=== PATIENT | female | born 1955 | race African-American/Black ===

== ENCOUNTER 2021-03-26 12:11 | Inpatient (IN) | payer OTHER ==
[~2021-03-26] VITALS: Ht 162.6 cm; Wt 58.1 kg
[2021-03-26] MEDS ORDERED: MORPHINE SULFATE 4 MG/ML CPJ (NOT FOR IM USE) IV STA (12:47)
[2021-03-26] MEDS ORDERED: ONDANSETRON HCL 4MG/2ML INJ IV STA (12:47)
[2021-03-26] MEDS ORDERED: SODIUM CHLORIDE 0.9% 1000ML BAG (SEPSIS BOLUS) IV ONE (13:00)
[2021-03-26] MEDS ORDERED: CEFTRIAXONE 1 G PREMIX 50 ML IV ONE (13:00)
[2021-03-26] MEDS ORDERED: AZITHROMYCIN 500 MG in DEXT 5% WATER 250 ML IV ONE (13:00)
[2021-03-26 14:28] LABS: BASOPHILS % 0.8 % (0.0-2.0); EOSINOPHILS % 1.4 % (0.0-5.0); HEMATOCRIT. 39.5 % (36.0-48.0); HEMOGLOBIN. 13.8 g/dL (12.0-16.0); LYMPHOCYTES % 19.6 % (20.0-50.0); MEAN CORPUSCULAR HEMOGLOBIN 29.3 pg (28.0-32.0); MEAN PLATELET VOLUME 8.9 fl (7.4-10.4); MONOCYTES % 6.8 % (2.0-8.0); NEUTROPHILS % 71.4 % (40.0-76.0); PLATELET 94 x1000/uL (130-400); RED CELL DISTRIBUTION WIDTH 14.6 % (11.6-14.6)
[2021-03-26 14:33] LABS: CHLORIDE 106 mEq/L (98-107)
[2021-03-26 14:39] LABS: D-DIMER 3.97 mg/L FEU (<0.50); PROTHROMBIN TIME 10.9 sec (9.6-11.0)
[2021-03-26] MEDS ORDERED: POTASSIUM CHLORIDE 20MEQ TABLET SR PO ONE (15:00)
[2021-03-26 15:55] LABS: CLARITY URINE CLEAR (CLEAR); COLOR URINE DARK YELLOW (YELLOW); KETONES URINE TRACE (NEGATIVE); LEUKOCYTE ESTERASE URINE 1+ (NEGATIVE); NITRITE URINE NEGATIVE (NEGATIVE); OCCULT BLOOD URINE NEGATIVE (NEGATIVE); PROTEIN URINE 1+ (NEGATIVE); SPECIFIC GRAVITY URINE 1.042 (1.005-1.030)
[2021-03-26] MEDS ORDERED: IOHEXOL-350 100 ML BOTTLE ONE (17:30)
[2021-03-26] MEDS ORDERED: CEFTRIAXONE 1 G PREMIX 50 ML IV SCH (22:00)
[2021-03-26] MEDS ORDERED: ONDANSETRON HCL 4MG/2ML INJ IV PRN (22:00)
[2021-03-26] MEDS: ALBUTEROL 6.7GM HFA INHALER ORI SCH (22:00)
[2021-03-26 22:40] VITALS: BP 137/58
[2021-03-26 23:03] LABS: CREATINE KINASE 64 IU/L (26-192)
[2021-03-26 23:08] LABS: CREATINE KINASE MB FRACTION < 1.0 ng/mL (0.5-3.6)
[2021-03-26] MEDS: METHYLPREDNISOLONE SOD SUCC 40 MG/ML VIAL IV SCH (23:31)
[2021-03-26] MEDS: ACETAMINOPHEN 325MG TABLET PO PRN (23:32)
[2021-03-26] MEDS ORDERED: *PATIENT'S OWN MEDICATION STORAGE XX SCH (23:45)
[2021-03-27] VITALS: BP 137/58
[2021-03-27] MEDS ORDERED: FLUO10CA25 PO (00:10)
[2021-03-27] MEDS ORDERED: ACET-2708 PO (00:10)
[2021-03-27] MEDS ORDERED: TETR15DR26 OP (00:10)
[2021-03-27] MEDS ORDERED: IBUP-1653 PO (00:10)
[2021-03-27] MEDS: ALBUTEROL 6.7GM HFA INHALER ORI SCH (03:29)
[2021-03-27 04:00] VITALS: BP 126/58
[2021-03-27] MEDS: METHYLPREDNISOLONE SOD SUCC 40 MG/ML VIAL IV SCH ×3 (06:06→21:20)
[2021-03-27 06:31] LABS: CHLORIDE 109 mEq/L (98-107)
[2021-03-27 06:43] LABS: CREATINE KINASE 65 IU/L (26-192)
[2021-03-27 06:45] LABS: CREATINE KINASE MB FRACTION < 1.0 ng/mL (0.5-3.6)
[2021-03-27 06:50] LABS: BASOPHILS % 0.6 % (0.0-2.0); EOSINOPHILS % 0.2 % (0.0-5.0); HEMATOCRIT. 39.4 % (36.0-48.0); HEMOGLOBIN. 13.3 g/dL (12.0-16.0); LYMPHOCYTES % 10.6 % (20.0-50.0); MEAN CORPUSCULAR HEMOGLOBIN 29.1 pg (28.0-32.0); MEAN CORPUSCULAR VOLUME 86.1 fL (81.0-99.0); MEAN PLATELET VOLUME 9.3 fl (7.4-10.4); MONOCYTES % 3.7 % (2.0-8.0); NEUTROPHILS % 84.9 % (40.0-76.0); PLATELET 75 x1000/uL (130-400); RED BLOOD CELL COUNT 4.58 mill/uL (4.2-5.4); RED CELL DISTRIBUTION WIDTH 14.7 % (11.6-14.6)
[2021-03-27 06:55] LABS: HEPATITIS B SURFACE ANTIGEN NEGATIVE
[2021-03-27 08:00] VITALS: BP 132/69
[2021-03-27 08:34] LABS: BG BASE EXCESS -2.1 mmol/L (-2.0-2.0); BG CARBOXYHEMOGLOBIN 1.1 % (0.5-1.5); BG HCO3 ACT 21.8 mmol/L (22.0-26.0); BG METHEMOGLOBIN 0.2 % (0.0-1.5); BG OXYGEN SATURATION 94.9 % (92.0-98.5); BG OXYHEMOGLOBIN 93.7 % (94.0-97.0); BG PCO2 34.7 mmHg (35.0-45.0); BG PH 7.415 (7.350-7.450); BG PO2 73.5 mmHg (75.0-100.0); BG SAMPLE SITE RIGHT RADIAL; BG TOTAL HEMOGLOBIN 14.3 g/dL (12.0-18.0); BG VENT MODE ROOM AIR
[2021-03-27] MEDS: AZITHROMYCIN 250 MG in DEXT 5% WATER 250 ML IV SCH ×2 (10:30→14:23)
[2021-03-27] MEDS: CEFTRIAXONE 1,000 MG in DEXTROSE 5% WATER 50 ML IV SCH (10:41)
[2021-03-27 12:00] VITALS: BP 133/65
[2021-03-27] MEDS: ACETAMINOPHEN 325MG TABLET PO PRN (15:10)
[2021-03-27 16:00] VITALS: BP 136/67
[2021-03-27] MEDS ORDERED: HYDROCODONE/ACETAMINOPHEN 5/325MG TABLET PO PRN (17:30)
[2021-03-27] MEDS ORDERED: LORAZEPAM 2MG/ML CPJ IV PRN (17:30)
[2021-03-27] MEDS ORDERED: HYDRALAZINE 20MG/ML VIAL IV PRN (17:30)
[2021-03-27] MEDS ORDERED: NALOXONE HCL 0.4MG/ML VIAL IV PRN (17:45)
[2021-03-27 20:00] VITALS: BP 168/96
[2021-03-27] MEDS ORDERED: LACTULOSE 20G/30ML UDC PO PRN (21:00)
[2021-03-27] MEDS: ALBUTEROL (0.083%) 2.5MG/3ML NEB HHN SCH (21:38)
[2021-03-28] VITALS: BP 151/80
[2021-03-28] MEDS: ALBUTEROL (0.083%) 2.5MG/3ML NEB HHN SCH ×3 (00:45→15:13)
[2021-03-28 04:00] VITALS: BP 163/73
[2021-03-28] MEDS: METHYLPREDNISOLONE SOD SUCC 40 MG/ML VIAL IV SCH ×2 (05:59→14:50)
[2021-03-28 07:34] LABS: CHLORIDE 107 mEq/L (98-107)
[2021-03-28 08:52] LABS: BASOPHILS % 0.2 % (0.0-2.0); HEMATOCRIT. 36.9 % (36.0-48.0); HEMOGLOBIN. 12.7 g/dL (12.0-16.0); LYMPHOCYTES % 10.1 % (20.0-50.0); MEAN CORPUSCULAR HEMOGLOBIN 29.1 pg (28.0-32.0); MEAN CORPUSCULAR VOLUME 84.8 fL (81.0-99.0); MEAN PLATELET VOLUME 9.7 fl (7.4-10.4); MONOCYTES % 7.1 % (2.0-8.0); NEUTROPHILS % 82.6 % (40.0-76.0); PLATELET 104 x1000/uL (130-400); RED BLOOD CELL COUNT 4.35 mill/uL (4.2-5.4); RED CELL DISTRIBUTION WIDTH 14.2 % (11.6-14.6)
[2021-03-28] MEDS: CEFTRIAXONE 1,000 MG in DEXTROSE 5% WATER 50 ML IV SCH (09:49)
[2021-03-28] MEDS: AZITHROMYCIN 250 MG in DEXT 5% WATER 250 ML IV SCH (11:19)
[2021-03-28] MEDS ORDERED: P20 PO (15:46)
[2021-03-28] MEDS ORDERED: FLUT1AER INH (15:46)
[2021-03-28] MEDS ORDERED: LEVO500T89 MT (15:46)
[2021-03-28] MEDS ORDERED: ALBU90AE INH (15:46)
[2021-03-28 16:34] VITALS: BP 166/98
[2021-03-29 20:00] VITALS: BP 138/67
[2021-03-30] VITALS: BP 160/58
[2021-03-30 04:00] VITALS: BP 119/52
== END 2021-03-28 17:57 | disposition home or self-care (01) | DRG 193 ==
LOC: ER 12:11 → 7WST 15:20 → ENRESERV 21:20 → 6WST 03-27 08:14
PROVIDERS: ADMIT Internal Medicine; ATTEND Internal Medicine
DX: J18.9 Pneumonia, unspecified organism (principal); J96.01 Acute respiratory failure with hypoxia; J44.1 Chronic obstructive pulmonary disease with (acute) exacerbation; J44.0 Chronic obstructive pulmonary disease with (acute) lower respiratory infection; R65.10 Systemic inflammatory response syndrome (SIRS) of non-infectious origin without acute organ dysfunction; E86.0 Dehydration; E87.6 Hypokalemia; Z20.822 Contact with and (suspected) exposure to COVID-19; F32.9 Major depressive disorder, single episode, unspecified; D69.6 Thrombocytopenia, unspecified; D72.819 Decreased white blood cell count, unspecified; Z79.51 Long term (current) use of inhaled steroids; Z79.899 Other long term (current) drug therapy; Z87.891 Personal history of nicotine dependence
CPT/HCPCS: 36415; 36600; 71045; 71275; 74176; 76830; 76856; 80048; 80053; 80076; 81003; 82375; 82550; 82553; 82805; 83605; 83880; 84145; 84484; 85025; 85379; 86705; 86709; 86803; 87340; 93005; 93306; 93970; 94640; 97161; 99285; C1893; J0360; J0456; J0696; J2270; J2405; J2920; J7030; J7040; J7060; Q9967; U0003; U0005